=== PATIENT | female | born 1990 | race Caucasian/White ===

== ENCOUNTER 2025-07-27 13:06 | Outpatient (REF) | payer OTHER, SELFPAY ==
[2025-07-27 17:58] LABS: MANUAL DIFF FLAG NO
[2025-07-27 18:03] LABS: Hematocrit 35.5 % (37.0-47.0); Hemoglobin 12.5 g/dl (12.0-16.0); Imm Gran Abs Auto 0.06 X10*3/uL (0.00-0.03); Imm Gran Pct Auto 0.7 % (0.0-0.4); Lymphocytes Absolute Auto 1.8 X10*3/uL (1.2-4.9); Mean Corpuscular HGB Conc 35.2 g/dl (31.0-35.0); Mean Corpuscular Hemoglobin 30.9 pg (27.0-33.0); Mean Corpuscular Volume 87.7 fL (80.0-98.0); NRBC Abs Auto 0.000 X10*3/uL (0.0-0.012); NRBC Pct Auto 0.0 /100WBC (0.0-0.2); Platelet Count 268 X10*3/uL (160-400); Red Blood Count 4.05 X10*6/uL (4.20-5.50); White Blood Count 8.6 X10*3/uL (4.8-10.8)
[2025-07-27 18:13] LABS: Hemoglobin A1C 115.2823 umol/L; Total Hemoglobin (HGBA1C) 3269.1379 umol/L
[2025-07-27 18:57] LABS: Alanine Aminotransferase 24 U/L (0-31); Albumin Level 4.1 g/dL (3.5-5.0); Alkaline Phosphatase 75 U/L (39-117); Anion Gap 11 (12-20); Aspartate Amino Transferase 24 U/L (5-31); Blood Urea Nitrogen 9 mg/dL (9-16); Calcium 8.5 mg/dL (8.4-10.2); Carbon Dioxide 22 mmol/L (22-29); Chloride 110 mmol/L (96-108); Cholesterol 172 mg/dL (<200); Estimated Glomerular Filt Rate > 60; HDL Cholesterol 52 mg/dL (>40); Potassium 4.2 mmol/L (3.3-5.1); Sodium 139 mmol/L (135-145); Total Protein 7.1 g/dL (6.5-8.0); Triglycerides 107 mg/dL (<150)
[2025-08-02 15:39] LABS: Testosterone, Free 4.9 pg/mL (0.1-6.4)
== END 2025-07-27 13:07 | disposition home or self-care (01) ==
LOC: HO.WFDLDS 13:06
PROVIDERS: PCP Internal Medicine; Visit Provider Internal Medicine
DX: Z13.0 Encounter for screening for diseases of the blood and blood-forming organs and certain disorders involving the immune mechanism (principal); Z13.220 Encounter for screening for lipoid disorders; Z13.228 Encounter for screening for other metabolic disorders; F41.9 Anxiety disorder, unspecified; F32.A Depression, unspecified; R35.89 Other polyuria; K80.20 Calculus of gallbladder without cholecystitis without obstruction; J02.9 Acute pharyngitis, unspecified; E28.2 Polycystic ovarian syndrome; Z00.00 Encounter for general adult medical examination without abnormal findings; E66.813 Obesity, class 3; Z68.43 Body mass index [BMI] 50.0-59.9, adult
CPT/HCPCS: 36415; 80053; 80061; 83036; 84402; 84403; 84443; 85025; 86308; 96127

== ENCOUNTER 2025-07-27 13:06 | Outpatient (AMB) | payer OTHER, SELFPAY ==
--- NOTE | 2025-07-27 13:15 | MHC.PC.OV ---
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 Required: No Allergies Sulfa (Sulfonamide Antibiotics) Allergy (Intermediate, Verified 07/27/25 13:17) Rash Tobacco use date assessed: 07/27/25 Dental Screening Dental Screen Date: 07/27/25 Did you have a dental visit in the last 12 months?: Yes Did you have a dental problem in the last 6 months where you did not have access to dental care?: No Was dental information given to patient?: Patient has dentist HPI HPI Comments History of Present Illness Details 34 year old female with a past medical history anxiety, depression, IBS, HSV, headaches/sinus, presenting to pending sale to [facility]. Has not seen a pcp in a few years. Upcoming cholecystectomy-October 03. [facility] surgery Patient has seen GI in the past but has not followed up. She feels fairly stable. Sore throat for the past couple weeks. Was having some allergy symptoms at outset but no longer. No fevers, Feeling fatigued. Some dyspepsia. History of anxiety/depression-saw a therapist a few years ago. Stable now Obesity-difficulty losing weight. She has tried decreasing calories being more active but hasnt had sustained success. She believes she has PCOS. Currently has IUD so unsure if periods are irregular. HSV-on valtrex prn Mammogram 08/2023 for a palpable lump MANAGER TRAINING: Dr [facility] ROS see hpi PHYSICAL EXAM: GENERAL: Alert and oriented x 3. NAD EYES: EOMI. Anicteric. HENT: Moist mucous membranes. mild erythema oropharynx No scleral icterus. No cervical lymphadenopathy. LUNGS: Clear to auscultation bilaterally. CARDIOVASCULAR: Regular rate and rhythm. No murmur. No JVD. ABDOMEN: Soft, non-tender +bs EXTREMITIES: No edema. Non-tender. SKIN: No rashes or lesions. Warm. NEUROLOGIC: No focal neurological deficits. CN II-XII grossly intact PSYCHIATRIC: Cooperative. Appropriate mood and affect [facility] Medical History (Updated 07/27/25 @ 13:57 by Tori Bermudez MD) Obesity, Class III, BMI 40-49.9 (morbid obesity) Surgical History H/O wisdom tooth extraction Family History Paternal Grandfather Substance abuse Alcoholism Mother HTN (hypertension) Father HTN (hypertension) High cholesterol Diabetes Cardiovascular disease FH: mental illness Social [facility] Alcohol intake: current Patient Tobacco Use Status: Never used Tobacco e-Cigarette/Vaping Use: Never Used Second Hand Smoke Exposure: No service: No Current occupational status: employed 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 1. Little interest or pleasure in doing things: several days 2. Feeling down, depressed, or hopeless: several days 3. Trouble falling or staying asleep, or sleeping too much: several days 4. Feeling tired or having little energy: several days 5. Poor appetite or overeating: several days 6. Feeling bad about yourself - or that you are a failure or have let yourself or your family down: not at all 7. Trouble concentrating on things, such as reading the newspaper or watching television: several days 8. Moving or speaking so slowly that other people could have noticed. Or the opposite - being so fidgety or restless that you have been moving around a lot more than usual: not at all 9. Thoughts that you would be better off or of hurting yourself in some way: not at all Total score: 6 Depression Screening Interpretation: Positive Depression Screening Follow-up: Declines treatment Depression Screening Done: Yes 73104 - PHQ-9 Billing: Yes Source: Developed by Drs. Yo Leonard, Linda Zuniga, Kyaw Vaughan and colleagues, with an educational jonnie from [employer]. Thrive Questionnaire Date Thrive assessed: 07/20/25 I am a: Patient What is your living situation today?: I have a steady place to live Within the past 12 months, did the food you bought not last and you didn't have the money to get more?: Never true Within the past 12 months, did you worry whether your food would run out before you got money to buy more?: Never true Do you have trouble paying for medicines?: No Do you have trouble getting transportation to medical appointments?: No Do you have trouble paying your heating and electricity bill?: No Do you have trouble taking care of your child, family member or friend?: No Do you have trouble with day-to-day activities such as bathing, preparing meals, shopping, managing finances, etc.?: No Are you currently unemployed and looking for a job?: No Are you interested in more education?: No Please select the resources that you would like help with: None Currently or been in a relationship where the following occur: I choose not to answer THRIVE Score: 0 AUDIT C Alcohol Use Questionnaire (AUDIT-C) 1. How often do you have a drink containing alcohol?: 2-4 times a month 2. How many drinks containing alcohol do you have on a typical day when you are drinking?: 1 or 2 3. How often do you have six or more drinks on one occasion?: Never Total Score: 2 CARLOS-7 AMB Questionnaire CARLOS-7 Date CARLOS - 7 assessed: 07/27/25 Feeling nervous, anxious, or on edge: 1 = Several days Not being able to stop or control worryin = Several days Worrying too much about different things: 1 = Several days Trouble relaxin = Several days Being so restless that it is hard to sit still: 2 = More than half the days Becoming easily annoyed or irritable: 1 = Several days Feeling afraid as if something awful might happen: 0 = Not at all Total CARLOS-7 score (0-4 normal; 5-9 mild; 10-14 moderate; 15-21 severe): 7 Source: Developed by Drs. Yo Leonard, Linda Zuniga, Kyaw Vaughan and colleagues, with an educational jonnie from [employer] CARLOS-7 Assessment Billing CARLOS-7 Assessment Tool: CARLOS-7 Assessment 46809 Physical exam (Primary Care) Vital Signs: Last Vital Signs Temp 98.8 F 07/27/25 13:20 Pulse 87 07/27/25 13:20 Resp 16 07/27/25 13:20 BP 104/80 07/27/25 13:20 Pulse Ox 97 07/27/25 13:20 Oxygen Delivery Method Room Air 07/27/25 13:20 BMI result Body Mass Index 57.8 Tobacco/Smoking Status: Tobacco use Status Tobacco use date assessed 07/27/25 07/27/25 13:24 Patient Tobacco Use Status Never used Tobacco 07/27/25 13:24 e-Cigarette/Vaping Use Never Used 07/27/25 13:24 PHQ-9: PHQ-9 Score PHQ-9: Total score 6 07/27/25 13:28 Depression Screening Interpretation: Positive Depression Screening Follow-up: Declines treatment Thrive Assessment: Date of Thrive Assessment Date Thrive assessed 07/20/25 07/27/25 13:24 Currently or been in a relationship where the following occur: I choose not to answer Coding Level of Care Code New Pt Level 4 (91824) Complex EM visit Add On G2211 Diagnoses Physical exam Z00.00 Anxiety and depression F41.9; F32.A Sore throat J02.9 Obesity, Class III, BMI 40-49.9 (morbid obesity) E66.813 Additional Codes CARLOS-7 Assessment Billing - CARLOS-7 Assessment Tool: CARLOS-7 Assessment 57479 ([id number]) PHQ-9 - 60215 - PHQ-9 Billing: Yes ([id number]) Assessment & Plan Assessment & Plan (1) Physical exam: Code(s): Z00.00 - Encounter for general adult medical examination without abnormal findings (2) Anxiety and depression: Code(s): F41.9 - Anxiety disorder, unspecified; F32.A - Depression, unspecified Category: Medical (3) Sore throat: Code(s): J02.9 - Acute pharyngitis, unspecified Category: Medical (4) Obesity, Class III, BMI 40-49.9 (morbid obesity): Code(s): E66.813 - Obesity, class 3 Category: Medical Plan 34 year old to establish care Past medical, surgical, social reviewed Sore throat -omeprazole trial. check mono Labs ordered Obesity-GLP if covered. labs ordered Orders: Orders Lipid Panel Today F32.A - Depression, unspecified, F41.9 - Anxiety disorder, unspecified, K80.20 - Calculus of gallbladder without cholecystitis without obstruction, R35.89 - Other polyuria, Z13.0 - Encounter for screening for diseases of the blood and blood-forming organs and certain disorders involving the immune mechanism, Z13.220 - Encounter for screening for lipoid disorders, Z13.228 - Encounter for screening for other metabolic disorders Monotest Today J02.9 - Acute pharyngitis, unspecified Testosterone, Free/Total Today E28.2 - Polycystic ovarian syndrome Complete Blood Count Auto Diff Today F32.A - Depression, unspecified, F41.9 - Anxiety disorder, unspecified, K80.20 - Calculus of gallbladder without cholecystitis without obstruction, R35.89 - Other polyuria, Z13.0 - Encounter for screening for diseases of the blood and blood-forming organs and certain disorders involving the immune mechanism, Z13.220 - Encounter for screening for lipoid disorders, Z13.228 - Encounter for screening for other metabolic disorders Comprehensive Met. Panel Today F32.A - Depression, unspecified, F41.9 - Anxiety disorder, unspecified, K80.20 - Calculus of gallbladder without cholecystitis without obstruction, R35.89 - Other polyuria, Z13.0 - Encounter for screening for diseases of the blood and blood-forming organs and certain disorders involving the immune mechanism, Z13.220 - Encounter for screening for lipoid disorders, Z13.228 - Encounter for screening for other metabolic disorders TSH reflex Free T4 Today F32.A - Depression, unspecified, F41.9 - Anxiety disorder, unspecified, K80.20 - Calculus of gallbladder without cholecystitis without obstruction, R35.89 - Other polyuria, Z13.0 - Encounter for screening for diseases of the blood and blood-forming organs and certain disorders involving the immune mechanism, Z13.220 - Encounter for screening for lipoid disorders, Z13.228 - Encounter for screening for other metabolic disorders Hemoglobin A1c Today F32.A - Depression, unspecified, F41.9 - Anxiety disorder, unspecified, K80.20 - Calculus of gallbladder without cholecystitis without obstruction, R35.89 - Other polyuria, Z13.0 - Encounter for screening for diseases of the blood and blood-forming organs and certain disorders involving the immune mechanism, Z13.220 - Encounter for screening for lipoid disorders, Z13.228 - Encounter for screening for other metabolic disorders Medications: New omeprazole 20 mg PO DAILY 90 caps 0RF Zepbound (tirzepatide (weight loss)) for 4 weeks 2.5 mg (0.5 mL) subcut QWEEK 2 mL 0RF NS
[2025-07-27 13:20] VITALS: BP 104/80; PULSE 87; RESP 16; TEMP 37.1; O2SAT 97; BMI 57.8
--- OUTSIDE RECORDS SUMMARY | 2025-07-27 15:38 | XMS_ITS | Continuity of Care Document ---
Author Organization [facility] Address [address] [facility] [address] [place] [id number] Insurance Providers Payer Plan Claims Address Claims Phone Policy Number Group Number Relation Employer Guarantor Name Guarantor Guarantor Address Guarantor Phone [facility] [address] [facility], [place] [address] tel:[phone] [id number] [facility] [address], [place] [address] tel: [phone] [id number] [phone] [facility] [address] [facility] [address], [place] [address] tel:[phone] Problems Condition ICD9 code ICD10 code SNOMED code Start Date End Date S tatus Encounter for screening for other metabolic disorders Z13.228 Results No Results Allergies, adverse reactions, alerts No known allergies and adverse reactions Medications No administered medications reported Vital Signs No vital signs reported Social History No smoking Hx information available
== END 2025-07-27 13:49 | disposition home or self-care (01) ==
LOC: HO.HMCFM 13:07
PROVIDERS: PCP Internal Medicine; Visit Provider Internal Medicine
DX: Z00.00 Encounter for general adult medical examination without abnormal findings (principal); F41.9 Anxiety disorder, unspecified; E66.813 Obesity, class 3; Z68.43 Body mass index [BMI] 50.0-59.9, adult; F32.A Depression, unspecified; J02.9 Acute pharyngitis, unspecified